=== PATIENT | female | born 1960 | race Two or more races ===

== ENCOUNTER 2017-08-29 13:19 | Emergency (ER) | payer OTHER ==
[2017-08-29 13:33] VITALS: PULSE 83; TEMP 97.6; BMI 23.6
[2017-08-29] MEDS ORDERED: ONDANSETRON *ODT* 4 MG TABLET SL ONE (14:01)
[2017-08-29] MEDS ORDERED: ACETAMINOPHEN 325 MG TABLET (FP) PO ONE (14:01)
[2017-08-29] MEDS ORDERED: ACETAMINOPHEN 325 MG TABLET (FP) ONE (14:19)
[2017-08-29] MEDS ORDERED: ONDANSETRON *ODT* 4 MG TABLET ONE (14:19)
[2017-08-29 14:35] LABS: URINE APPEARANCE Clear; URINE BILIRUBIN Negative (NEGATIVE); URINE BLOOD Negative (NEGATIVE); URINE GLUCOSE (UA) Negative (NEGATIVE); URINE KETONE Negative (NEGATIVE); URINE LEUK ESTERASE Negative (NEGATIVE); URINE NITRITE Negative (NEGATIVE); URINE PROTEIN Negative (NEGATIVE); URINE UROBILINOGEN 0.2 (0.2-1.0)
[2017-08-29 14:36] LABS: URINE COLOR AMBER
--- NOTE | 2017-08-29 14:52 | PDOC ---
History of Present Illness - General Chief Complaint: Injury Stated Complaint: WHILE MOVING A CHAIR SHE HIT WALL THEN HIT ABDOM History Source: Patient Exam Limitations: No Limitations - History of Present Illness Initial Comments: 08/29/17 14:48 57-year-old femal no past medical history here today complaining of lower abdominal pain. Patient states she was walking cleaning the daycare on a day prior and ran into a stroller that hit the wall now she is having lower abdominal pain one day later. has nausea but no vomiting. Pain is worse with touching and movement no dysuria A no urinary symptoms also complaining of low back pain. No hematuria did not take anything for pain prior to arrival patient was seen in urgent care prior to this and sent to the ED for evaluation. Past History - Past Medical History Allergies/Adverse Reactions: Allergies Allergy/AdvReac Type Severity Reaction Status Date / Time codeine Allergy Intermediate Hives Verified 08/29/17 13:22 Home Medications: Ambulatory Orders Ibuprofen [Motrin -] 600 mg PO TID #90 tablet 08/29/17 Losartan Potassium 50 mg PO DAILY 08/29/17 Ondansetron [Zofran *Odt*] 8 mg SL TID PRN #10 od.tablet 08/29/17 COPD: No Diabetes: Yes Hypercholesterolemia: Yes Other medical history: OSTEO ARTHRITIS, - Suicide/Smoking/Psychosocial Hx Smoking History: Never smoked Information on smoking cessation initiated: No Hx Alcohol Use: Yes (SOCIAL) Drug/Substance Use Hx: No Substance Use Type: Alcohol Review of Systems - Review of Systems Constitutional: No: Chills, Diaphoresis, Fever HEENTM: No: Eye Pain Respiratory: No: Cough, Orthopnea Cardiac (ROS): No: Chest Pain ABD/GI: Yes: Nausea. No: Vomiting Musculoskeletal: Yes: Back Pain. No: See HPI, Gout, Joint Pain Neurological: No: Headache Psychiatric: No: Frequent Crying All Other Systems: Reviewed and Negative *Physical Exam - Vital Signs Last Vital Signs Temp Pulse Resp BP Pulse Ox 97.6 F 83 16 155/101 98 08/29/17 13:26 08/29/17 13:26 08/29/17 13:26 08/29/17 13:26 08/29/17 13:26 - Physical Exam General Appearance: Yes: Nourished, Appropriately Dressed Neck: positive: Trachea midline Respiratory/Chest: positive: Lungs Clear, Normal Breath Sounds Cardiovascular: positive: Regular Rhythm, Regular Rate, S1, S2 Gastrointestinal/Abdominal: positive: Normal Bowel Sounds, Tender (mild suprapubic and rlq ttp no rebound no guarding), Flat, Soft Musculoskeletal: positive: Normal Inspection. negative: CVA Tenderness Extremity: positive: Normal Capillary Refill, Normal Inspection Integumentary: positive: Normal Color, Warm Neurologic: positive: Fully Oriented, Alert, Normal Mood/Affect, Motor Strength 01/16 ED Treatment Course - ADDITIONAL ORDERS Additional order review: Laboratory Results 08/29/17 14:31 Urine Color Kasie Urine Appearance Clear Urine pH 6.0 Ur Specific [place] 1.020 Urine Protein Negative Urine Glucose (UA) Negative Urine Ketones Negative Urine Blood Negative Urine Nitrite Negative Urine Bilirubin Negative Urine Urobilinogen 0.2 Ur Leukocyte Esterase Negative - Medications Given in the ED: ED Medications Discontinued Medications Generic Name Dose Route Start Last Admin Trade Name Freq PRN Reason Stop Dose Admin Acetaminophen 650 mg 08/29/17 14:01 08/29/17 14:19 Tylenol - PO 08/29/17 14:02 650 mg ONCE ONE Administration Ondansetron HCl 8 mg 08/29/17 14:01 08/29/17 14:20 Zofran Odt - SL 08/29/17 14:02 8 mg ONCE ONE Administration Medical Decision Making - Medical Decision Making 08/29/17 14:51 57-year-old status post minor trauma to her abdomen here 24 hours later with complaints of pain differential is Medis told to wall pain, UTI, contusion Plan UA pain medication and antiemetics followed by reassessment 08/29/17 15:03 Patient with mild improvement following Motrin UA is negative for hematuria or other signs of infection. He C home with Motrin and Zofran when necessary follow up with primary doctor *DC/Admit/Observation/Transfer Diagnosis at time of Disposition: Abdominal wall contusion - Discharge Dispostion Disposition: HOME Condition at time of disposition: Improved Admit: No - Prescriptions Prescriptions: Ibuprofen [Motrin -] 600 mg PO TID #90 tablet Ondansetron [Zofran *Odt*] 8 mg SL TID PRN #10 od.tablet PRN Reason: Nausea - Referrals - Patient Instructions Printed Discharge Instructions: Contusion, Abdominal Muscle Strain Additional Instructions: Take Zofran 8 mg every 8 hours as needed for nausea. Take Motrin 600mg every 8 hours as needed for pain. He can also take Tylenol 500 mg every 6 hours as needed for pain. Return for any worsening symptoms, vomiting, or urine or any concerns. Follow-up with your primary care doctor call to schedule within 1 week - Post Discharge Activity
[2017-08-29 15:08] VITALS: BP 129/83
== END 2017-08-29 15:24 | disposition home or self-care (01) ==
LOC: FER 13:19
DX: S30.1XXA Contusion of abdominal wall, initial encounter (principal); W22.8XXA Striking against or struck by other objects, initial encounter; Y93.89 Activity, other specified; Y92.9 Unspecified place or not applicable; I10 Essential (primary) hypertension; E11.9 Type 2 diabetes mellitus without complications; M19.90 Unspecified osteoarthritis, unspecified site
CPT/HCPCS: 81003; 99282-25

== ENCOUNTER 2025-04-14 12:22 | Emergency (ER) | payer OTHER ==
[2025-04-14 12:38] VITALS: BP 140/86; PULSE 64; RESP 18; TEMP 98.1; BMI 22.1
[2025-04-14] MEDS ORDERED: KETOROLAC TROMETHAMINE 30 MG/1 ML VIAL ONE (13:10)
[2025-04-14] MEDS ORDERED: ACETAMINOPHEN 500 MG TABLET (FP) ONE (13:10)
[2025-04-14] MEDS ORDERED: LIDOCAINE 4% PATCH TP ONE (13:10)
[2025-04-14] MEDS: LIDOCAINE 5% TOPICAL PATCH TP ONE (13:19)
[2025-04-14] MEDS: KETOROLAC TROMETHAMINE 30 MG/1 ML VIAL IM ONE (13:19)
[2025-04-14] MEDS: ACETAMINOPHEN 500 MG TABLET (FP) PO ONE (13:20)
[2025-04-14] MEDS ORDERED: LIDOCAINE PATCH REMOVAL MC ONE (22:00)
== END 2025-04-14 13:49 | disposition home or self-care (01) ==
LOC: JERFT 12:22
PROC: 3E0233Z Introduction of Anti-inflammatory into Muscle, Percutaneous Approach (ICD-10-PCS; principal; 2025-04-14)
DX: M25.551 Pain in right hip (principal); G89.29 Other chronic pain
CPT/HCPCS: 96372; 99284-25